=== PATIENT | male | born 1960 | race Caucasian/White ===

== ENCOUNTER 2022-04-11 09:58 | Inpatient (IN) | payer OTHER ==
[~2022-04-11] VITALS: Ht 167.6 cm; Wt 89.9 kg
[2022-04-11] MEDS ORDERED: ASPIRIN 81MG TABLET PO ONE (10:45)
[2022-04-11] MEDS ORDERED: NITROGLYCERIN 0.4MG TABLET SL SL PRN (10:45)
[2022-04-11 10:48] LABS: BASOPHILS % 0.6 % (0.0-2.0); EOSINOPHILS % 12.1 % (0.0-5.0); HEMATOCRIT. 44.5 % (42.0-52.0); HEMOGLOBIN. 15.1 g/dL (14.0-18.0); LYMPHOCYTES % 20.4 % (20.0-50.0); MEAN CORPUSCULAR VOLUME 85.2 fL (80.0-94.0); MEAN PLATELET VOLUME 9.4 fl (7.4-10.4); MONOCYTES % 9.1 % (2.0-8.0); NEUTROPHILS % 57.8 % (40.0-76.0); PLATELET 204 x1000/uL (130-400); RED BLOOD CELL COUNT 5.22 mill/uL (4.7-6.1); RED CELL DISTRIBUTION WIDTH 13.4 % (11.6-14.6)
[2022-04-11 11:00] LABS: CHLORIDE 98 mEq/L (98-107)
[2022-04-11] MEDS ORDERED: ENOXAPARIN 100MG/ML SYR SUBCUT ONE (15:00)
[2022-04-11 16:00] VITALS: BP 126/73
[2022-04-11 16:10] VITALS: BP 126/73
[2022-04-11] MEDS ORDERED: CLONIDINE 0.1MG TABLET PO PRN (17:45)
[2022-04-11 18:00] VITALS: BP 142/76
[2022-04-11] MEDS: NITROGLYCERIN OINT 1GM/INCH UDPKT TD SCH (18:00)
[2022-04-11] MEDS ORDERED: IPRATROPIUM/ALBUTEROL 0.5-3(2.5)MG/3ML NEB HHN PRN (18:30)
[2022-04-11] MEDS ORDERED: ONDANSETRON HCL 4MG/2ML INJ IV PRN (18:30)
[2022-04-11] MEDS ORDERED: ACETAMINOPHEN 325MG TABLET PO PRN (18:30)
[2022-04-11] MEDS ORDERED: DIPHENHYDRAMINE 50MG/ML VIAL IV PRN (18:30)
[2022-04-11] MEDS ORDERED: NALOXONE HCL 0.4MG/ML VIAL IV PRN (18:45)
[2022-04-11 20:00] VITALS: BP 146/81
[2022-04-11] MEDS ORDERED: DEXTROSE 50% WATER 50ML SYRINGE IV PRN (20:30)
[2022-04-11] MEDS: BLOOD SUGAR DIAGNOSTIC STRIP TEST SCH (21:17)
[2022-04-11] MEDS: LOSARTAN POTASSIUM 25 MG TABLET PO SCH (21:17)
[2022-04-11] MEDS: INSULIN LISPRO 100 UNITS/ML SUBCUT SCH (21:17)
[2022-04-11] MEDS ORDERED: LISI40TA13 MT (21:50)
[2022-04-11] MEDS ORDERED: METF-416 PO (21:50)
[2022-04-11] MEDS ORDERED: LIP40 MT (21:51)
[2022-04-11] MEDS ORDERED: LISI20TA31 PO (21:51)
[2022-04-11] MEDS ORDERED: ASPI-1497 PO (21:52)
[2022-04-11] MEDS ORDERED: LEVVL SQ ×2 (21:53→21:55)
[2022-04-11] MEDS ORDERED: INSLIS SUBCUT ×3 (21:57→22:00)
[2022-04-12] VITALS: BP 117/74
[2022-04-12 04:00] VITALS: BP 108/61
[2022-04-12] MEDS: NITROGLYCERIN OINT 1GM/INCH UDPKT TD SCH ×4 (05:43→18:10)
[2022-04-12 05:49] LABS: HEMATOCRIT. 40.8 % (42.0-52.0); HEMOGLOBIN. 14.1 g/dL (14.0-18.0); MEAN CORPUSCULAR HEMOGLOBIN 29.3 pg (28.0-32.0); MEAN CORPUSCULAR VOLUME 84.7 fL (80.0-94.0); MEAN PLATELET VOLUME 10.1 fl (7.4-10.4); PLATELET 205 x1000/uL (130-400); RED BLOOD CELL COUNT 4.82 mill/uL (4.7-6.1)
[2022-04-12] MEDS: BLOOD SUGAR DIAGNOSTIC STRIP TEST SCH ×4 (06:04→21:25)
[2022-04-12] MEDS: INSULIN LISPRO 100 UNITS/ML SUBCUT SCH ×4 (06:04→21:25)
[2022-04-12 06:12] LABS: CHLORIDE 101 mEq/L (98-107)
[2022-04-12 08:00] VITALS: BP 106/47
[2022-04-12] MEDS ORDERED: SODIUM CHLORIDE 0.45% 500 ML IV ONE (08:00)
[2022-04-12] MEDS ORDERED: ASPIRIN 81MG EC TABLET PO SCH (09:00)
[2022-04-12] MEDS: LOSARTAN POTASSIUM 25 MG TABLET PO SCH ×2 (09:00→21:20)
[2022-04-12 11:10] LABS: PLATELET ESTIMATE NORMAL
[2022-04-12 12:00] VITALS: BP 110/57
[2022-04-12] MEDS ORDERED: ASPIRIN/SOD BICARB/CITRIC ACID 324MG TAB EFF ONE (13:07)
[2022-04-12] MEDS ORDERED: IODIXANOL 320MG/ML 100 ML BOTTLE IV ONE (13:09)
[2022-04-12] MEDS ORDERED: LIDOCAINE HCL 1% 20ML VIAL (Pyxis) INJ ONE (13:09)
[2022-04-12] MEDS ORDERED: MIDAZOLAM HCL 2 MG/2 ML VIAL ONE (13:10)
[2022-04-12] MEDS ORDERED: FENTANYL CITRATE/PF 50MCG/ML 2ML VIAL ONE (13:10)
[2022-04-12] MEDS ORDERED: HEPARIN 1000 UNITS/ML 10ML ONE (13:30)
[2022-04-12] MEDS ORDERED: ACETAMINOPHEN 325MG TABLET PO PRN ×2 (14:30→17:45)
[2022-04-12] MEDS ORDERED: SODIUM CHLORIDE 0.45% 1,000 ML IV ONE (14:30)
[2022-04-12] MEDS ORDERED: ATROPINE SULFATE 1MG/10ML SYR IV PRN (14:30)
[2022-04-12] MEDS ORDERED: ONDANSETRON HCL 4MG/2ML INJ IV PRN (14:30)
[2022-04-12] MEDS: ASPIRIN 81MG EC TABLET PO SCH (17:00)
[2022-04-12] MEDS ORDERED: NITROGLYCERIN 0.4MG TABLET SL SL PRN (17:45)
[2022-04-12 20:00] VITALS: BP 122/72
[2022-04-13] VITALS: BP 124/75
[2022-04-13] MEDS: NITROGLYCERIN OINT 1GM/INCH UDPKT TD SCH ×4 (00:23→17:48)
[2022-04-13 04:00] VITALS: BP 116/63
[2022-04-13] MEDS: BLOOD SUGAR DIAGNOSTIC STRIP TEST SCH ×4 (05:42→21:14)
[2022-04-13] MEDS: INSULIN LISPRO 100 UNITS/ML SUBCUT SCH ×4 (06:14→21:31)
[2022-04-13 08:00] VITALS: BP 127/66
[2022-04-13 08:25] LABS: HEMATOCRIT. 42.2 % (42.0-52.0); HEMOGLOBIN. 14.2 g/dL (14.0-18.0); MEAN CORPUSCULAR HEMOGLOBIN 28.7 pg (28.0-32.0); MEAN CORPUSCULAR VOLUME 85.5 fL (80.0-94.0); MEAN PLATELET VOLUME 9.6 fl (7.4-10.4); PLATELET 204 x1000/uL (130-400); RED BLOOD CELL COUNT 4.94 mill/uL (4.7-6.1); RED CELL DISTRIBUTION WIDTH 13.2 % (11.6-14.6)
[2022-04-13] MEDS: LOSARTAN POTASSIUM 25 MG TABLET PO SCH ×2 (08:59→21:31)
[2022-04-13] MEDS: ASPIRIN 81MG EC TABLET PO SCH ×2 (08:59→17:50)
[2022-04-13 10:11] LABS: CHLORIDE 105 mEq/L (98-107)
[2022-04-13 12:00] VITALS: BP 118/72
[2022-04-13 16:00] VITALS: BP 125/69
[2022-04-13 18:56] LABS: PLATELET ESTIMATE NORMAL
[2022-04-13 20:00] VITALS: BP 127/72
[2022-04-13] MEDS ORDERED: DIPHENHYDRAMINE 25MG CAPSULE PO PRN (21:00)
[2022-04-13] MEDS ORDERED: ASCORBIC ACID 500 MG TABLET PO SCH (21:00)
[2022-04-13] MEDS ORDERED: BISACODYL 10MG SUPP PR PRN (21:00)
[2022-04-13] MEDS ORDERED: CHLORHEXIDINE GLUCONATE 4% EXTERNAL USE TOP SCH (21:00)
[2022-04-13] MEDS ORDERED: DOCUSATE SODIUM 100MG CAPSULE PO SCH (21:00)
[2022-04-13] MEDS: ALLOPURINOL 300 MG TABLET PO SCH (21:30)
[2022-04-14] VITALS (17 sets, daily range): BP systolic 96–159; BP diastolic 45–75
[2022-04-14] MEDS ORDERED: DOBUTAMINE 250 MG in DEXT 5% WATER 230 ML IV NR (01:00)
[2022-04-14] MEDS ORDERED: EPINEPHRINE 5 MG in DEXT 5% WATER 245 ML IV NR (01:00)
[2022-04-14] MEDS ORDERED: PAPAVERINE HCL 180MG in SODIUM CHLORIDE 0.9% 24ML IV NR ×2 (01:00→17:00)
[2022-04-14] MEDS ORDERED: NOREPINEPHRINE 8 MG in DEXT 5% WATER 242 ML IV NR (01:00)
[2022-04-14] MEDS ORDERED: INSULIN REGULAR (DRIP) 100 UNITS in SODIUM CHLORIDE 0.9% 99 ML IV NR (01:00)
[2022-04-14] MEDS ORDERED: INSULIN REGULAR 100U/100ML PMX 100 ML IV NR (01:00)
[2022-04-14] MEDS ORDERED: DEL NIDO ELECTROLYTE-S(PH 7.4) 1,000 ML IV NR ×2 (01:00)
[2022-04-14] MEDS ORDERED: CEFAZOLIN 2,000 MG in DEXT 5% WATER 100 ML IV NR (01:00)
[2022-04-14] MEDS: ALLOPURINOL 300 MG TABLET PO SCH (05:23)
[2022-04-14] MEDS: NITROGLYCERIN OINT 1GM/INCH UDPKT TD SCH ×3 (05:23→12:00)
[2022-04-14] MEDS: BLOOD SUGAR DIAGNOSTIC STRIP TEST SCH ×4 (05:41→23:00)
[2022-04-14] MEDS: INSULIN LISPRO 100 UNITS/ML SUBCUT SCH ×2 (06:15→11:36)
[2022-04-14 07:39] LABS: HEMATOCRIT. 41.9 % (42.0-52.0); HEMOGLOBIN. 14.1 g/dL (14.0-18.0); MEAN CORPUSCULAR HEMOGLOBIN 28.7 pg (28.0-32.0); MEAN CORPUSCULAR VOLUME 85.3 fL (80.0-94.0); MEAN PLATELET VOLUME 9.6 fl (7.4-10.4); PLATELET 227 x1000/uL (130-400); RED BLOOD CELL COUNT 4.91 mill/uL (4.7-6.1); RED CELL DISTRIBUTION WIDTH 13.6 % (11.6-14.6)
[2022-04-14 07:54] LABS: PROTHROMBIN TIME 10.8 sec (9.6-11.0)
[2022-04-14 08:13] LABS: CHLORIDE 104 mEq/L (98-107)
[2022-04-14 08:20] LABS: PHOSPHORUS 3.8 mg/dL (2.5-4.9)
[2022-04-14] MEDS: ASPIRIN 81MG EC TABLET PO SCH (09:00)
[2022-04-14] MEDS ORDERED: CHLORHEXIDINE GLUCONATE 4% EXTERNAL USE TOP SCH (09:00)
[2022-04-14] MEDS: LOSARTAN POTASSIUM 25 MG TABLET PO SCH ×2 (09:35→21:00)
[2022-04-14] MEDS ORDERED: POLYMYXIN B SULFATE 500000 UNITS/VIAL ONE (12:14)
[2022-04-14] MEDS ORDERED: SKIN ADHESIVE 0.7 GM EA TOP ONE (12:14)
[2022-04-14] MEDS ORDERED: THROMBIN (BOVINE) 5000 UNITS/VIAL TOP ONE (12:14)
[2022-04-14] MEDS ORDERED: DOPAMINE 400MG/250ML PREMIX 250 ML IV ONE (13:41)
[2022-04-14] MEDS ORDERED: HEPARIN 1000 UNITS/ML 10ML ONE (13:42)
[2022-04-14] MEDS ORDERED: NICARDIPINE 40MG/200ML PREMIX 200 ML IV ONE (14:31)
[2022-04-14 17:01] LABS: PLATELET ESTIMATE NORMAL
[2022-04-14] MEDS ORDERED: INSULIN LISPRO 100 UNITS/ML SUBCUT SCH (17:10)
[2022-04-14] MEDS ORDERED: ROCURONIUM BROMIDE 10MG/ML VIAL 5ML IV ONE ×2 (17:44→19:06)
[2022-04-14] MEDS ORDERED: FENTANYL CITRATE/PF 50MCG/ML 2ML VIAL ONE ×2 (17:45→21:02)
[2022-04-14] MEDS ORDERED: METOPROLOL TARTRATE 5MG/5ML VIAL IV ONE (20:03)
[2022-04-14] MEDS ORDERED: DEXAMETHASONE 4MG/ML 1ML VIAL ONE (20:03)
[2022-04-14] MEDS ORDERED: DEXMEDETOMIDINE 400 MCG/100 ML 100 ML IV ONE (20:03)
[2022-04-14] MEDS ORDERED: PROTAMINE SULFATE 10MG/ML VIAL 25ML IV ONE (20:04)
[2022-04-14] MEDS ORDERED: NEOSTIGMINE METHYLSULFATE 1MG/ML 10 ML VIAL ONE (20:23)
[2022-04-14] MEDS ORDERED: GLYCOPYRROLATE 0.2 MG/ML 2ML VIAL ONE ×2 (20:24)
[2022-04-14] MEDS ORDERED: ALBUTEROL 6.7GM HFA INHALER ONE (20:38)
[2022-04-14] MEDS: METOPROLOL TARTRATE 25MG TABLET PO SCH (21:00)
[2022-04-14] MEDS ORDERED: ALBUMIN HUMAN 25GM/100ML (25%) IV PRN (21:00)
[2022-04-14] MEDS ORDERED: CALCIUM CHLORIDE 3,000 MG in DEXT 5% WATER 250 ML IV PRN (21:00)
[2022-04-14] MEDS ORDERED: MAGNESIUM 2 G PREMIX 50 ML IV PRN (21:00)
[2022-04-14] MEDS ORDERED: MAGNESIUM SULFATE 3 GM in DEXT 5% WATER 100 ML IV PRN (21:00)
[2022-04-14] MEDS ORDERED: KETOROLAC 15MG/ML VIAL IV PRN (21:00)
[2022-04-14] MEDS ORDERED: MAGNESIUM 1 G PREMIX 100 ML IV PRN (21:00)
[2022-04-14] MEDS ORDERED: ALBUMIN HUMAN 12.5G/250ML (5%) IV PRN (21:00)
[2022-04-14] MEDS ORDERED: CALCIUM CHLORIDE 5,000 MG in DEXT 5% WATER 500 ML IV PRN (21:00)
[2022-04-14] MEDS ORDERED: ONDANSETRON HCL 4MG/2ML INJ IV PRN (21:00)
[2022-04-14] MEDS: CLOPIDOGREL 75MG TABLET PO NR (21:00)
[2022-04-14] MEDS: DOPAMINE 400MG/250ML PREMIX 250 ML IV SCH (21:00)
[2022-04-14] MEDS ORDERED: SODIUM CHLORIDE 0.9% 500 ML IV PRN (21:00)
[2022-04-14] MEDS ORDERED: DEXTROSE 50% WATER 50ML SYRINGE IV PRN ×2 (21:30)
[2022-04-14 21:56] LABS: BG CARBOXYHEMOGLOBIN 0.4 % (0.5-1.5); BG DEOXYHEMOGLOBIN 6.7 % (0.0-5.0); BG FRACTION INSPIRED OXYGEN 100; BG HCO3 ACT 20.8 mmol/L (22.0-26.0); BG METHEMOGLOBIN 0.2 % (0.0-1.5); BG OXYGEN SATURATION 93.3 % (92.0-98.5); BG OXYHEMOGLOBIN 92.7 % (94.0-97.0); BG PCO2 45.9 mmHg (35.0-45.0); BG PH 7.275 (7.350-7.450); BG PO2 75.1 mmHg (75.0-100.0); BG SAMPLE SITE ALINE; BG TOTAL HEMOGLOBIN 13.8 g/dL (12.0-18.0); BG VENT MODE MASK - NRB
[2022-04-14] MEDS ORDERED: INSULIN REGULAR 100U/100ML PMX 100 ML IV SCH (22:00)
[2022-04-14 22:01] LABS: BASOPHILS % 0.1 % (0.0-2.0); EOSINOPHILS % 3.3 % (0.0-5.0); HEMATOCRIT. 38.2 % (42.0-52.0); HEMOGLOBIN. 12.7 g/dL (14.0-18.0); LYMPHOCYTES % 8.9 % (20.0-50.0); MEAN CORPUSCULAR HEMOGLOBIN 28.5 pg (28.0-32.0); MEAN CORPUSCULAR VOLUME 85.4 fL (80.0-94.0); MEAN PLATELET VOLUME 9.3 fl (7.4-10.4); MONOCYTES % 4.6 % (2.0-8.0); NEUTROPHILS % 83.1 % (40.0-76.0); PLATELET 215 x1000/uL (130-400); RED BLOOD CELL COUNT 4.47 mill/uL (4.7-6.1); RED CELL DISTRIBUTION WIDTH 12.9 % (11.6-14.6)
[2022-04-14 22:24] LABS: INR 1.1; PARTIAL THROMBOPLASTIN TIME 25.6 sec (23.4-31.0); PROTHROMBIN TIME 11.7 sec (9.6-11.0)
[2022-04-14] MEDS ORDERED: SODIUM BICARBONATE 8.4% 1 MEQ/ML 50ML SYR IV NR (22:30)
[2022-04-14] MEDS ORDERED: KCL 10MEQ/50ML PREMIX 200 ML IV PRN (22:30)
[2022-04-14] MEDS ORDERED: KCL 10MEQ/50ML PREMIX 150 ML IV PRN (22:30)
[2022-04-14] MEDS ORDERED: KCL 10MEQ/50ML PREMIX 100 ML IV PRN (22:30)
[2022-04-14] MEDS: MORPHINE SULFATE 2 MG/ML CPJ (NOT FOR IM USE) IV PRN (22:41)
[2022-04-14] MEDS: CEFAZOLIN 1000MG PREMIX 50 ML IV SCH (22:42)
[2022-04-14] MEDS ORDERED: KCL 20MEQ/100ML PREMIX 100 ML IV NR (23:15)
[2022-04-14] MEDS: DEXT 5%/0.45% NACL 1000ML 1,000 ML IV SCH (23:42)
[2022-04-15] VITALS (82 sets, daily range): BP systolic 93–173; BP diastolic 43–82
[2022-04-15] MEDS: NITROGLYCERIN OINT 1GM/INCH UDPKT TD SCH ×4 (00:28→17:48)
[2022-04-15] MEDS: CLOPIDOGREL 75MG TABLET PO NR (00:28)
[2022-04-15] MEDS: MAGNESIUM HYDROXIDE 400MG/5ML 30ML UDC PO SCH ×6 (00:29→19:49)
[2022-04-15] MEDS: MORPHINE SULFATE 2 MG/ML CPJ (NOT FOR IM USE) IV PRN ×2 (01:06→05:19)
[2022-04-15] MEDS: BLOOD SUGAR DIAGNOSTIC STRIP TEST SCH ×18 (01:41→21:23)
[2022-04-15 04:13] LABS: HEMATOCRIT. 38.8 % (42.0-52.0); HEMOGLOBIN. 13.1 g/dL (14.0-18.0); MEAN CORPUSCULAR HEMOGLOBIN 28.6 pg (28.0-32.0); MEAN CORPUSCULAR VOLUME 84.5 fL (80.0-94.0); MEAN PLATELET VOLUME 8.9 fl (7.4-10.4); PLATELET 223 x1000/uL (130-400); RED CELL DISTRIBUTION WIDTH 13.4 % (11.6-14.6)
[2022-04-15] MEDS: IPRATROPIUM/ALBUTEROL 0.5-3(2.5)MG/3ML NEB HHN SCH ×5 (04:18→22:03)
[2022-04-15 04:22] LABS: CHLORIDE 105 mEq/L (98-107)
[2022-04-15 05:06] LABS: BG BASE EXCESS -0.5 mmol/L (-2.0-2.0); BG CARBOXYHEMOGLOBIN 0.4 % (0.5-1.5); BG DEOXYHEMOGLOBIN 7.2 % (0.0-5.0); BG FRACTION INSPIRED OXYGEN 40; BG METHEMOGLOBIN 0.2 % (0.0-1.5); BG OXYGEN SATURATION 92.8 % (92.0-98.5); BG OXYHEMOGLOBIN 92.2 % (94.0-97.0); BG PCO2 39.3 mmHg (35.0-45.0); BG PH 7.404 (7.350-7.450); BG PO2 63.8 mmHg (75.0-100.0); BG SAMPLE SITE ALINE; BG VENT MODE NASAL CANNULA
[2022-04-15] MEDS: CEFAZOLIN 1000MG PREMIX 50 ML IV SCH ×3 (05:27→21:21)
[2022-04-15 05:35] LABS: PLATELET ESTIMATE NORMAL
[2022-04-15] MEDS ORDERED: FUROSEMIDE 40MG/4ML VIAL IVP SCH (08:15)
[2022-04-15] MEDS: CLOPIDOGREL 75MG TABLET PO SCH (08:21)
[2022-04-15] MEDS: DOCUSATE SODIUM 100MG CAPSULE PO SCH ×2 (08:21→16:48)
[2022-04-15] MEDS: METOPROLOL TARTRATE 25MG TABLET PO SCH ×2 (08:21→21:17)
[2022-04-15] MEDS: LOSARTAN POTASSIUM 25 MG TABLET PO SCH ×2 (08:22→21:16)
[2022-04-15] MEDS: ASPIRIN 81MG EC TABLET PO SCH (08:22)
[2022-04-15] MEDS: FAMOTIDINE 20MG/2ML VIAL IV SCH (08:22)
[2022-04-15] MEDS: BACITRACIN 15GM TUBE TOP SCH ×2 (08:23→16:48)
[2022-04-15 09:52] LABS: HEMATOCRIT. 38.7 % (42.0-52.0); HEMOGLOBIN. 12.8 g/dL (14.0-18.0); MEAN CORPUSCULAR HEMOGLOBIN 28.3 pg (28.0-32.0); MEAN CORPUSCULAR VOLUME 85.7 fL (80.0-94.0); MEAN PLATELET VOLUME 9.3 fl (7.4-10.4); PLATELET 233 x1000/uL (130-400); RED BLOOD CELL COUNT 4.52 mill/uL (4.7-6.1); RED CELL DISTRIBUTION WIDTH 13.3 % (11.6-14.6)
[2022-04-15 10:01] LABS: CHLORIDE 97 mEq/L (98-107)
[2022-04-15] MEDS: HYDROCODONE/ACETAMINOPHEN 5/325MG TABLET PO PRN (10:11)
[2022-04-15] MEDS: KCL 10MEQ/50ML PREMIX 100 ML IV PRN ×2 (10:28→11:39)
[2022-04-15 10:39] LABS: PLATELET ESTIMATE NORMAL
[2022-04-15] MEDS: DOPAMINE 400MG/250ML PREMIX 250 ML IV SCH (11:43)
[2022-04-15] MEDS ORDERED: FUROSEMIDE 100MG/10ML VIAL IVP SCH (14:15)
[2022-04-15] MEDS ORDERED: DEXTROSE 50% WATER 50ML SYRINGE IV PRN (16:00)
[2022-04-15] MEDS: INSULIN LISPRO 100 UNITS/ML SUBCUT SCH ×2 (18:21→21:20)
[2022-04-15] MEDS: HYDROCODONE/ACETAMINOPHEN 10/325MG TABLET PO PRN (19:20)
[2022-04-15] MEDS ORDERED: INSULIN GLARGINE 100 UNITS/ML SUBCUT SCH (22:00)
[2022-04-15] MEDS: DEXT 5%/0.45% NACL 1000ML 1,000 ML IV SCH (23:55)
[2022-04-16] VITALS (38 sets, daily range): BP systolic 104–159; BP diastolic 58–91
[2022-04-16] MEDS: MAGNESIUM HYDROXIDE 400MG/5ML 30ML UDC PO SCH ×6 (00:22→20:00)
[2022-04-16] MEDS: NITROGLYCERIN OINT 1GM/INCH UDPKT TD SCH ×4 (00:22→17:32)
[2022-04-16] MEDS: IPRATROPIUM/ALBUTEROL 0.5-3(2.5)MG/3ML NEB HHN SCH ×6 (01:15→20:13)
[2022-04-16] MEDS: DOPAMINE 400MG/250ML PREMIX 250 ML IV SCH ×2 (02:32→16:00)
[2022-04-16] MEDS: HYDROCODONE/ACETAMINOPHEN 10/325MG TABLET PO PRN (02:46)
[2022-04-16 04:41] LABS: BASOPHILS % 0.1 % (0.0-2.0); EOSINOPHILS % 0.5 % (0.0-5.0); HEMATOCRIT. 38.3 % (42.0-52.0); HEMOGLOBIN. 12.8 g/dL (14.0-18.0); MEAN CORPUSCULAR HEMOGLOBIN 28.5 pg (28.0-32.0); MEAN CORPUSCULAR VOLUME 85.4 fL (80.0-94.0); MEAN PLATELET VOLUME 9.2 fl (7.4-10.4); MONOCYTES % 8.6 % (2.0-8.0); NEUTROPHILS % 79.8 % (40.0-76.0); PLATELET 224 x1000/uL (130-400); RED BLOOD CELL COUNT 4.48 mill/uL (4.7-6.1); RED CELL DISTRIBUTION WIDTH 13.5 % (11.6-14.6)
[2022-04-16 04:48] LABS: CHLORIDE 95 mEq/L (98-107)
[2022-04-16] MEDS: BLOOD SUGAR DIAGNOSTIC STRIP TEST SCH ×4 (07:50→21:29)
[2022-04-16] MEDS: MORPHINE SULFATE 2 MG/ML CPJ (NOT FOR IM USE) IV PRN (08:17)
[2022-04-16] MEDS: INSULIN LISPRO 100 UNITS/ML SUBCUT SCH ×4 (08:18→21:37)
[2022-04-16] MEDS ORDERED: ALBUMIN HUMAN 25GM/100ML (25%) IV ONE (08:30)
[2022-04-16] MEDS: METOPROLOL TARTRATE 25MG TABLET PO SCH ×2 (08:55→21:35)
[2022-04-16] MEDS: LOSARTAN POTASSIUM 25 MG TABLET PO SCH ×2 (08:55→23:11)
[2022-04-16] MEDS: CLOPIDOGREL 75MG TABLET PO SCH (08:55)
[2022-04-16] MEDS: DOCUSATE SODIUM 100MG CAPSULE PO SCH ×2 (08:55→17:32)
[2022-04-16] MEDS: ASPIRIN 81MG EC TABLET PO SCH (08:55)
[2022-04-16] MEDS ORDERED: FUROSEMIDE 100MG/10ML VIAL IVP SCH (09:00)
[2022-04-16] MEDS: FAMOTIDINE 20MG/2ML VIAL IV SCH (09:01)
[2022-04-16] MEDS: BACITRACIN 15GM TUBE TOP SCH ×2 (09:41→17:32)
[2022-04-16] MEDS ORDERED: MAGNESIUM 4 G PREMIX 100 ML IV SCH (10:00)
[2022-04-16] MEDS: HYDROCODONE/ACETAMINOPHEN 5/325MG TABLET PO PRN (12:26)
[2022-04-16] MEDS: INSULIN GLARGINE 100 UNITS/ML SUBCUT SCH (21:36)
[2022-04-17] VITALS (27 sets, daily range): BP systolic 105–146; BP diastolic 57–86
[2022-04-17] MEDS: IPRATROPIUM/ALBUTEROL 0.5-3(2.5)MG/3ML NEB HHN SCH ×6 (00:24→20:50)
[2022-04-17] MEDS: NITROGLYCERIN OINT 1GM/INCH UDPKT TD SCH ×4 (01:28→17:53)
[2022-04-17] MEDS: MAGNESIUM HYDROXIDE 400MG/5ML 30ML UDC PO SCH ×6 (03:53→22:08)
[2022-04-17] MEDS: BLOOD SUGAR DIAGNOSTIC STRIP TEST SCH ×4 (06:19→22:13)
[2022-04-17] MEDS ORDERED: FUROSEMIDE 40MG/4ML VIAL IVP NR (07:30)
[2022-04-17] MEDS: INSULIN LISPRO 100 UNITS/ML SUBCUT SCH ×4 (08:02→22:19)
[2022-04-17] MEDS: FAMOTIDINE 20MG/2ML VIAL IV SCH (08:29)
[2022-04-17] MEDS: CLOPIDOGREL 75MG TABLET PO SCH (08:30)
[2022-04-17] MEDS: ASPIRIN 81MG EC TABLET PO SCH (08:30)
[2022-04-17] MEDS: DOCUSATE SODIUM 100MG CAPSULE PO SCH ×2 (08:30→17:50)
[2022-04-17] MEDS: LOSARTAN POTASSIUM 25 MG TABLET PO SCH ×2 (08:30→21:46)
[2022-04-17 08:37] LABS: CHLORIDE 94 mEq/L (98-107)
[2022-04-17 08:38] LABS: BASOPHILS % 0.5 % (0.0-2.0); EOSINOPHILS % 4.5 % (0.0-5.0); HEMATOCRIT. 36.6 % (42.0-52.0); HEMOGLOBIN. 12.1 g/dL (14.0-18.0); LYMPHOCYTES % 17.8 % (20.0-50.0); MEAN CORPUSCULAR HEMOGLOBIN 28.5 pg (28.0-32.0); MEAN CORPUSCULAR VOLUME 85.7 fL (80.0-94.0); MEAN PLATELET VOLUME 9.5 fl (7.4-10.4); MONOCYTES % 8.9 % (2.0-8.0); NEUTROPHILS % 68.3 % (40.0-76.0); PLATELET 214 x1000/uL (130-400); RED BLOOD CELL COUNT 4.27 mill/uL (4.7-6.1); RED CELL DISTRIBUTION WIDTH 13.6 % (11.6-14.6)
[2022-04-17] MEDS: METOPROLOL TARTRATE 25MG TABLET PO SCH (08:41)
[2022-04-17] MEDS: HYDROCODONE/ACETAMINOPHEN 10/325MG TABLET PO PRN (08:41)
[2022-04-17] MEDS: INSULIN GLARGINE 100 UNITS/ML SUBCUT SCH ×2 (11:46→22:19)
[2022-04-17] MEDS: BACITRACIN 15GM TUBE TOP SCH ×2 (11:46→17:57)
[2022-04-17] MEDS: METOPROLOL TARTRATE 50MG TABLET PO SCH (21:00)
[2022-04-17] MEDS: FAMOTIDINE 20MG TABLET PO SCH (22:08)
[2022-04-18] VITALS (8 sets, daily range): BP systolic 116–141; BP diastolic 69–108
[2022-04-18] MEDS: IPRATROPIUM/ALBUTEROL 0.5-3(2.5)MG/3ML NEB HHN SCH ×4 (00:08→12:02)
[2022-04-18] MEDS: NITROGLYCERIN OINT 1GM/INCH UDPKT TD SCH ×3 (00:57→12:47)
[2022-04-18] MEDS: MAGNESIUM HYDROXIDE 400MG/5ML 30ML UDC PO SCH ×4 (03:59→12:46)
[2022-04-18 06:49] LABS: BASOPHILS % 0.8 % (0.0-2.0); EOSINOPHILS % 10.8 % (0.0-5.0); HEMATOCRIT. 42.5 % (42.0-52.0); LYMPHOCYTES % 20.6 % (20.0-50.0); MEAN CORPUSCULAR HEMOGLOBIN 28.7 pg (28.0-32.0); MEAN CORPUSCULAR VOLUME 87.5 fL (80.0-94.0); MEAN PLATELET VOLUME 8.9 fl (7.4-10.4); MONOCYTES % 8.5 % (2.0-8.0); NEUTROPHILS % 59.3 % (40.0-76.0); PLATELET 265 x1000/uL (130-400); RED BLOOD CELL COUNT 4.86 mill/uL (4.7-6.1); RED CELL DISTRIBUTION WIDTH 13.6 % (11.6-14.6)
[2022-04-18] MEDS: BLOOD SUGAR DIAGNOSTIC STRIP TEST SCH ×2 (06:50→12:45)
[2022-04-18 07:16] LABS: CHLORIDE 95 mEq/L (98-107)
[2022-04-18] MEDS ORDERED: FUROSEMIDE 40MG/4ML VIAL IVP NR (07:45)
[2022-04-18] MEDS: BACITRACIN 15GM TUBE TOP SCH (09:00)
[2022-04-18] MEDS: ASPIRIN 81MG EC TABLET PO SCH (09:07)
[2022-04-18] MEDS: FAMOTIDINE 20MG TABLET PO SCH (09:08)
[2022-04-18] MEDS: CLOPIDOGREL 75MG TABLET PO SCH (09:08)
[2022-04-18] MEDS: LOSARTAN POTASSIUM 25 MG TABLET PO SCH (09:08)
[2022-04-18] MEDS: DOCUSATE SODIUM 100MG CAPSULE PO SCH (09:09)
[2022-04-18] MEDS: INSULIN LISPRO 100 UNITS/ML SUBCUT SCH ×2 (09:12→13:28)
[2022-04-18] MEDS: INSULIN GLARGINE 100 UNITS/ML SUBCUT SCH (09:12)
[2022-04-18] MEDS: METOPROLOL TARTRATE 50MG TABLET PO SCH (09:17)
[2022-04-18] MEDS ORDERED: METO-539 PO (10:07)
[2022-04-18] MEDS ORDERED: CLOP75TA15 PO (10:07)
[2022-04-18] MEDS ORDERED: ASPI-1497 PO (10:07)
[2022-04-18] MEDS ORDERED: TOPUD PO (10:08)
[2022-04-18] MEDS ORDERED: LOSA25TA3 PO (10:08)
[2022-04-18] MEDS ORDERED: HYDR-4001 MT (10:08)
== END 2022-04-18 16:32 | disposition home or self-care (01) | DRG 165 ==
LOC: ER 10:34 → 7EST 14:20 → ENRESERV 14:44 → CVICU 04-14 21:15 → 3WST 04-16 18:03
PROVIDERS: ADMIT Internal Medicine; ATTEND Internal Medicine
PROC: 4A023N7 Measurement of Cardiac Sampling and Pressure, Left Heart, Percutaneous Approach (ICD-10-PCS; 2022-04-12)
PROC: B2111ZZ Fluoroscopy of Multiple Coronary Arteries using Low Osmolar Contrast (ICD-10-PCS; 2022-04-12)
PROC: 021009W Bypass Coronary Artery, One Artery from Aorta with Autologous Venous Tissue, Open Approach (ICD-10-PCS; principal; 2022-04-14)
PROC: 02100Z9 Bypass Coronary Artery, One Artery from Left Internal Mammary, Open Approach (ICD-10-PCS; 2022-04-14)
PROC: 02100Z8 Bypass Coronary Artery, One Artery from Right Internal Mammary, Open Approach (ICD-10-PCS; 2022-04-14)
PROC: 06BQ4ZZ Excision of Left Saphenous Vein, Percutaneous Endoscopic Approach (ICD-10-PCS; 2022-04-14)
DX: I21.4 Non-ST elevation (NSTEMI) myocardial infarction (principal); E11.9 Type 2 diabetes mellitus without complications; I25.110 Atherosclerotic heart disease of native coronary artery with unstable angina pectoris; Z79.82 Long term (current) use of aspirin; E78.00 Pure hypercholesterolemia, unspecified; I10 Essential (primary) hypertension; Z20.822 Contact with and (suspected) exposure to COVID-19; E78.5 Hyperlipidemia, unspecified; R74.01 Elevation of levels of liver transaminase levels; Z87.891 Personal history of nicotine dependence
CPT/HCPCS: 36415; 36600; 71045; 80048; 80053; 82375; 82805; 82962; 83036; 83735; 83880; 84100; 84443; 84484; 85025; 85347; 86850; 86900; 86920; 87426; 93005; 93306; 93458; 93880; 93970; 94640; 97110; 97116; 97162; 97166; 99291; C1729; C1751; C1758; C1769; C1887; C1893; J0690; J1100; J1250; J1265; J1644; J1650; J1815; J1885; J1940; J2250; J2270; J2440; J2710; J2720; J3010; J3475; J3480; J3490; J7060; L3908; P9047; Q9957; Q9967